=== PATIENT | female | born 1960 | race Caucasian/White ===

== ENCOUNTER → 2016-05-29 | Outpatient (CLI) | payer OTHER ==
[~2016-05-29] MED LIST: ASCO250T PO; AZEL137S3 NS; CALC-67 PO; FEXO180T5 PO; IPRA15SP NS; MELO-150 PO; METO25TA4 PO; MOME17SP NS; MULT-658 PO; OMEG-113 PO; OMEP20CA9 PO; ORPH100T PO; REMIFEMIN PO; UBID100C26 PO; VALA500T PO
[2016-05-29 10:16] LABS: BILIRUBIN,URINE NEGATIVE (NEG); GLUCOSE,URINE NEGATIVE (NEG); NITRITE,URINE NEGATIVE (NEG); PH,URINE 6.5; PROTEIN,URINE NEGATIVE (NEG-TRACE); UROBILINOGEN,URINE 0.2 mg/dL (0.2 mg/dL)
[2016-05-29 10:46] LABS: BACTERIA,URINE FEW /HPF (0-FEW); RBC,URINE 0 /HPF (0-2); SQUAMOUS EPITHELIAL CELL,UR MOD /LPF
--- NOTE | 2016-05-29 13:14 | RAD ---
EXAM: Chest, 2 views. HISTORY: Pain. Preoperative evaluation. COMPARISON: None. FINDINGS: Frontal and lateral views of the chest are obtained. There is no infiltrate, effusion or pneumothorax. The heart is normal in size. There is a dorsal column stability or terminating over the mid thoracic vertebral column. IMPRESSION: No acute pulmonary finding.
== END | disposition home or self-care (01) ==
LOC: SURGPAT 14:33
PROVIDERS: ATTEND Orthopaedic Surgery
DX: Z01.818 Encounter for other preprocedural examination (principal); I10 Essential (primary) hypertension
CPT/HCPCS: 36415; 71020; 81001; 85610; 85651; 85730; 87641

== ENCOUNTER → 2016-06-13 | Outpatient (CLI) | payer OTHER ==
[~2016-06-13] MED LIST changes: +ASPI325T11 PO; +FERR-26 PO; +MONT10TA9; +OXYC-323 PO; +[UNRECOGNIZED DRUG - CODE]
[2016-06-13 14:57] LABS: BILIRUBIN,URINE NEGATIVE (NEG); GLUCOSE,URINE NEGATIVE (NEG); NITRITE,URINE NEGATIVE (NEG); PH,URINE 5.5; PROTEIN,URINE NEGATIVE (NEG-TRACE); UROBILINOGEN,URINE 0.2 mg/dL (0.2 mg/dL)
[2016-06-13 15:37] LABS: BACTERIA,URINE 0 /HPF (0-FEW); RBC,URINE 0 /HPF (0-2); SQUAMOUS EPITHELIAL CELL,UR OCC /LPF; WBC,URINE 0 /HPF (0-4)
== END | disposition home or self-care (01) ==
LOC: LAB 14:06
PROVIDERS: ATTEND Orthopaedic Surgery
DX: Z01.812 Encounter for preprocedural laboratory examination (principal)
CPT/HCPCS: 81001